=== PATIENT | male | born 1935 | race Two or more races ===

== ENCOUNTER 2017-09-20 13:10 | Outpatient (CLI) | payer MEDICARE, MEDICAID | END 2017-09-20 23:59 | disposition home or self-care (01) | LOC: WOU 13:10 | PROVIDERS: ATTEND Podiatrist Foot & Ankle Surgery | DX: E11.42 Type 2 diabetes mellitus with diabetic polyneuropathy (principal); M20.12 Hallux valgus (acquired), left foot; M20.11 Hallux valgus (acquired), right foot; B35.1 Tinea unguium; L60.2 Onychogryphosis; Z79.84 Long term (current) use of oral hypoglycemic drugs; Z79.82 Long term (current) use of aspirin; I48.91 Unspecified atrial fibrillation; Z95.810 Presence of automatic (implantable) cardiac defibrillator; Z87.891 Personal history of nicotine dependence; I11.9 Hypertensive heart disease without heart failure; E11.51 Type 2 diabetes mellitus with diabetic peripheral angiopathy without gangrene | CPT/HCPCS: A6402; G0463 ==

== ENCOUNTER 2018-02-21 10:28 | Outpatient (CLI) | payer MEDICARE, MEDICAID | END 2018-02-21 23:59 | disposition home or self-care (01) | LOC: WOU 10:28 | PROVIDERS: ATTEND Podiatrist Foot & Ankle Surgery | DX: E11.65 Type 2 diabetes mellitus with hyperglycemia (principal); B35.1 Tinea unguium; E11.42 Type 2 diabetes mellitus with diabetic polyneuropathy; B35.3 Tinea pedis; L85.3 Xerosis cutis | CPT/HCPCS: G0463 ==